=== PATIENT | female | born 1990 | race Caucasian/White ===

== ENCOUNTER 2017-09-29 10:41 | Emergency (ER) | payer BC, OTHER ==
[2017-09-29] MEDS ORDERED: ACETAMINOPHEN 325 MG TABLET PO ONE (11:47)
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
[2017-09-29] MEDS ORDERED: CEPHALEXIN 500 MG CAPSULE PO ONE (12:44)
[2017-09-29 13:11] VITALS: BP 113/80
== END 2017-09-29 13:08 | disposition home or self-care (01) ==
LOC: ER 10:41
PROC: 0HQ1XZZ Repair Face Skin, External Approach (ICD-10-PCS; principal; 2017-09-29)
DX: S02.2XXB Fracture of nasal bones, initial encounter for open fracture (principal); S01.21XA Laceration without foreign body of nose, initial encounter; W21.89XA Striking against or struck by other sports equipment, initial encounter; Y93.69 Activity, other involving other sports and athletics played as a team or group; Y92.89 Other specified places as the place of occurrence of the external cause
CPT/HCPCS: 70160; 99283